=== PATIENT | female | born 1985 | race Caucasian/White ===

== ENCOUNTER 2017-01-27 18:36 | Emergency (ER) | payer MEDICAID ==
[~2017-01-27 18:36] MED LIST: CIPRO250 MG PO; FLEXERIL10 MG PO; LAC PO
[2017-01-27 20:46] VITALS: BP 95/61
== END 2017-01-27 20:46 | disposition home or self-care (01) ==
LOC: ED 18:36
DX: G44.209 Tension-type headache, unspecified, not intractable (principal); H57.12 Ocular pain, left eye; H92.02 Otalgia, left ear; Z79.1 Long term (current) use of non-steroidal anti-inflammatories (NSAID); Z79.899 Other long term (current) drug therapy
CPT/HCPCS: J1885; Q0162

== ENCOUNTER 2017-05-10 20:11 | Emergency (ER) | payer MEDICAID ==
[2017-05-10 21:12] VITALS: BP 116/79
== END 2017-05-10 20:51 | disposition home or self-care (01) ==
LOC: ED 20:11
DX: S16.1XXA Strain of muscle, fascia and tendon at neck level, initial encounter (principal); S39.012A Strain of muscle, fascia and tendon of lower back, initial encounter; S30.1XXA Contusion of abdominal wall, initial encounter; V49.40XA Driver injured in collision with unspecified motor vehicles in traffic accident, initial encounter; Y93.I9 Activity, other involving external motion; Y99.8 Other external cause status; Y92.410 Unspecified street and highway as the place of occurrence of the external cause

== ENCOUNTER 2018-01-15 20:11 | Emergency (ER) | payer MEDICAID ==
[~2018-01-15] VITALS: Ht 165.1 cm; Wt 78.0 kg
[2018-01-15 20:19] VITALS: Ht 165.1 cm; Wt 78.0 kg
[2018-01-15 21:39] LABS: BASOPHIL % 0.4 % (0-2); PLATELET COUNT 184 x10^3mcL (130-400); RED CELL DISTRIBUTION WIDTH 13.4 % (11.5-14.5)
[2018-01-15 21:53] LABS: CALCIUM 8.8 mg/dL (8.5-10.1); CARBON DIOXIDE 28.2 mmol/L (21-32); CHLORIDE SERUM 103 mmol/L (98-107); CREATININE SERUM 0.8 mg/dL (0.6-1.0); GFR1 > 60 mL/min; GLUCOSE SERUM 84 mg/dL (74-106); POTASSIUM SERUM 3.7 mmol/L (3.5-5.1); SODIUM SERUM 137 mmol/L (136-145)
[2018-01-15 21:57] LABS: ALBUMIN 3.5 g/dL (3.4-5.0); ALKALINE PHOSPHATASE 101 U/L (46-116); ALT/SGPT 29 U/L (14-59); AMYLASE 65 U/L (25-115); AST/SGOT 18 U/L (15-37); BILIRUBIN TOTAL 0.25 mg/dL (0.20-1.00); LIPASE 123 IU/L (73-393)
[2018-01-15 23:52] VITALS: BP 103/67
== END 2018-01-15 23:52 | disposition home or self-care (01) ==
LOC: ED 20:11
PROVIDERS: Specialist
DX: K59.00 Constipation, unspecified (principal)
CPT/HCPCS: 36415; 83880; J1885

== ENCOUNTER 2018-05-01 20:05 | Emergency (ER) | payer MEDICAID ==
[2018-05-01 22:47] LABS: microscopic required? YES; urine erythrocyte NEGATIVE (NEGATIVE)
[2018-05-02 00:30] VITALS: BP 100/58
== END 2018-05-02 00:45 | disposition home or self-care (01) ==
LOC: ED 20:05
PROVIDERS: Emergency Medicine
DX: O23.42 Unspecified infection of urinary tract in pregnancy, second trimester (principal); Z3A.17 17 weeks gestation of pregnancy; K42.9 Umbilical hernia without obstruction or gangrene
CPT/HCPCS: Q0092

== ENCOUNTER 2019-07-17 20:03 | Emergency (ER) | payer MEDICAID ==
[~2019-07-17] VITALS: Ht 160 cm; Wt 79.8 kg
[2019-07-17 20:07] VITALS: Ht 160 cm; Wt 79.8 kg
[2019-07-17 20:53] LABS: BASOPHIL % 0.7 % (0-2); RED CELL DISTRIBUTION WIDTH 12.7 % (11.5-14.5)
[2019-07-17 20:59] LABS: PLATELET COUNT 167 x10^3mcL (130-400)
[2019-07-17 21:01] LABS: CARBON DIOXIDE 27.7 mmol/L (21-32); CHLORIDE SERUM 106 mmol/L (98-107); CREATININE SERUM 0.7 mg/dL (0.6-1.0); GFR1 > 60 mL/min; GLUCOSE SERUM 108 mg/dL (74-106); POTASSIUM SERUM 3.5 mmol/L (3.5-5.1); SODIUM SERUM 143 mmol/L (136-145)
[2019-07-17 21:05] LABS: ALBUMIN 3.5 g/dL (3.4-5.0); ALKALINE PHOSPHATASE 97 U/L (46-116); ALT/SGPT 13 U/L (14-59); AMYLASE 61 U/L (25-115); AST/SGOT 6 U/L (15-37); BILIRUBIN TOTAL 0.39 mg/dL (0.20-1.00); LIPASE 117 IU/L (73-393)
[2019-07-17 23:09] VITALS: BP 128/70
== END 2019-07-17 23:12 | disposition home or self-care (01) ==
LOC: ED 20:03
PROVIDERS: Emergency Medicine
DX: R51 Headache (principal); R10.12 Left upper quadrant pain; R07.89 Other chest pain
CPT/HCPCS: J1200; J1885; J2765